=== PATIENT | female | born 1945 | race Caucasian/White ===

== ENCOUNTER 2019-09-10 03:07 | Inpatient (IN) | payer MEDICARE ==
[~2019-09-10] VITALS: Ht 165.1 cm; Wt 41.4 kg
[2019-09-10] MEDS ORDERED: ALBUTEROL SULF 2.5 MG/0.5ML(0.5%) NEB SOLN HHN ONE (03:30)
[2019-09-10] MEDS ORDERED: methylPREDNISolone SOD SUCC 125 MG/2 ML VL IV ONE (03:30)
[2019-09-10] MEDS ORDERED: IPRATROPIUM BROM 0.5 MG/2.5ML INH SOL HHN ONE (03:30)
[2019-09-10 05:11] LABS: Basophils # (auto) 0.2 10 ^3/uL (0-0.2); Basophils % (auto) 1.2 % (0.0-2.0); Eosinophils # (auto) 0 10 ^3/uL (0-0.8); Hematocrit 46.4 % (36.0-46.0); Lymphocytes # (auto) 0.5 10 ^3/uL (0.4-5.4); Lymphocytes % (auto) 3.8 % (10.0-50.0); Mean Corpuscular Hemoglobin 31.7 pg (28.0-32.0); Mean Corpuscular Hgb Conc. 32.4 g/dL (32.0-36.0); Mean Corpuscular Volume 97.9 fL (80.0-100.0); Monocytes # (auto) 0.5 10 ^3/uL (0-1.3); Monocytes % (auto) 3.8 % (0.0-12.0); Neutrophils # (auto) 12.8 10 ^3/uL (1.6-8.6); Neutrophils % (auto) 91.2 % (37.0-80.0); Nucleated Red Blood Cells % 0.2 %; Platelet Count (auto) 158 10^3/uL (140-450); Red Blood Cells 4.74 10^6/uL (4.0-5.20); Red Cell Distribution Width 13.9 % (11.8-14.3)
[2019-09-10 05:27] LABS: Alanine Aminotransferase 33 U/L (13-56); Albumin 3.8 g/dL (3.4-5.0); Anion Gap 6 (5-15); Aspartate Aminotransferase 44 U/L (15-37); BUN/Creatinine Ratio 25.5; Blood Urea Nitrogen 28 mg/dL (7-18); Carbon Dioxide 27 mmol/L (21-32); Chloride 103 mmol/L (98-107); GFR African American 62 mL/min; GFR Non-African American 51 mL/min; Glucose 129 mg/dL (74-106); Magnesium 1.9 mg/dL (1.6-2.6); Potassium 5.2 mmol/L (3.5-5.1); Sodium 136 mmol/L (136-145)
[2019-09-10] MEDS ORDERED: cefTRIAXone 1GM/50ML D5W 50 ML IV ONE (05:30)
[2019-09-10] MEDS ORDERED: AZITHROMYCIN 250 MG TAB PO ONE (05:30)
[2019-09-10 05:34] LABS: Alkaline Phosphatase 93 U/L (45-117); Bilirubin, Total 0.4 mg/dL (0.2-1.0)
[2019-09-10] MEDS ORDERED: MORPHINE SULF INJ 2 MG/ML SYRINGE 1ML IV PRN (06:00)
[2019-09-10] MEDS ORDERED: DOCUSATE SOD 100 MG CAP PO PRN (06:00)
[2019-09-10] MEDS ORDERED: hydrALAZINE HCL 25 MG TAB PO PRN (06:00)
[2019-09-10] MEDS ORDERED: ONDANSETRON HCL 4 MG/2 ML VIAL IV PRN (06:00)
[2019-09-10] MEDS ORDERED: ACETAMINOPHEN 500 MG TAB PO PRN (06:00)
[2019-09-10] MEDS ORDERED: ALBUTEROL SULF HFA 90MCG INH 200DOSE IN SCH (06:00)
[2019-09-10] MEDS ORDERED: HYDROcodone-ACET 5/325MG TAB PO PRN (06:00)
[2019-09-10] MEDS ORDERED: ACETAMINOPHEN 325 MG TAB PO PRN (06:00)
[2019-09-10] MEDS ORDERED: SODIUM CHLORIDE 0.9% 1,000 ML IV SCH (06:00)
--- NOTE | 2019-09-10 08:10 | NUR ---
Respiratory note: PT ASSESSED FOR MEDNEB PRN. PT FOUND ON 2 LPM NC SP02 95%. PT IS IN NO DISTRESS AT THIS TIME. INFORMED PT TO HAVE RT PAGED IF BECOMES SOB.
--- NOTE | 2019-09-10 09:15 | NUR ---
Telemetry admit from [facility] admitted to Telemetry unit after SBAR received. Patient oriented to BE LOW RN primary RN, unit, room, bed, and unit policies regarding patient care and visiting hours. Patient now on continuous telemetry monitoring,cardiac monitor technician #[id number],telemetry reading on arrival to unit is SR. Patient placed on bedside oxygen, weighed by bedscale and encouraged to call if they need something. All questions and concerns addressed, patient verbalized understanding.
[2019-09-10] MEDS ORDERED: CHOLECALCIFEROL (VITD3) 1,000UNIT=25mCg TAB PO SCH (10:00)
[2019-09-10] MEDS ORDERED: ZINC SULFATE 220mg CAP or TAB PO SCH (10:00)
[2019-09-10] MEDS ORDERED: ASCORBIC ACID 1,000 MG TAB PO SCH (10:00)
[2019-09-10] MEDS ORDERED: DOXYCYCLINE 100MG/250ML 250 ML IV SCH (10:00)
[2019-09-10] MEDS ORDERED: methylPREDNISolone SOD SUCC 125 MG/2 ML VL IV SCH (10:00)
[2019-09-10] MEDS: ENOXAPARIN SOD 40 MG/0.4 ML SYRINGE SC SCH (10:31)
[2019-09-10] MEDS ORDERED: LEVE500T32 PO (10:44)
[2019-09-10] MEDS ORDERED: AMLO5TAB15 PO (10:44)
[2019-09-10] MEDS ORDERED: IBUP600T27 PO (10:44)
[2019-09-10] MEDS ORDERED: CLON0.1D7 PO (10:44)
[2019-09-10 10:53] VITALS: BP 108/52
--- NOTE | 2019-09-10 11:10 | NUR ---
IV insertion IV access obtained, via clean sterile technique by inserting 22 gauge catheter at LEFT WRIST after 1 attempt(s). IV secured properly. No trauma to site. Patient tolerated well. IV removal IV DC'd with clean sterile technique, catheter fully intact. Pressure dressing applied to site. Patient tolerated well.
[2019-09-10 12:00] VITALS: BP 94/71
--- NOTE | 2019-09-10 13:40 | NUR ---
PT TRANSFERRED TO ROOM 246A PT TRANSFERRED WITH ALL BELONGING AND ON 4LNC. NO DISTRESS NOTED AT TIME OF DEPARTURE
--- NOTE | 2019-09-10 14:00 | NUR ---
RESUMED CARE OF PATIENT.
[2019-09-10 16:59] VITALS: BP 118/72
[2019-09-10] MEDS: ALBUTEROL SULF 2.5 MG/0.5ML(0.5%) NEB SOLN NEB PRN (18:19)
[2019-09-10] MEDS: IPRATROPIUM BROM 0.5 MG/2.5ML INH SOL NEB PRN (18:20)
--- NOTE | 2019-09-10 19:00 | NUR ---
Opening Shift Note Assumed care of patient, awake and alert. No S/S of distress/SOB or pain. Instructed on POC and to call for assist PRN, will continue to monitor for changes Q1hr and PRN. Bed locked in lowest position. Call light within reach.
[2019-09-10] MEDS ORDERED: SODIUM CHLORIDE 0.9% 1,000 ML IV ONE (20:15)
[2019-09-10] MEDS ORDERED: FUROSEMIDE 20 MG/2 ML VIAL IV ONE (20:15)
[2019-09-10 21:50] LABS: Calcium 8.7 mg/dL (8.5-10.1); Potassium 4.5 mmol/L (3.5-5.1)
[2019-09-10] MEDS: AZITHROMYCIN 250 MG TAB PO SCH (21:50)
[2019-09-10] MEDS: methylPREDNISolone SOD SUCC 40 MG/ML VL IV SCH (21:51)
[2019-09-10 22:00] VITALS: BP 103/48
--- NOTE | 2019-09-11 04:46 | NUR ---
IV removal IV DC'd from left wrist with clean sterile technique, catheter fully intact. Pressure dressing applied to site. Patient tolerated well.
[2019-09-11 05:00] VITALS: BP 123/72
--- NOTE | 2019-09-11 05:00 | NUR ---
IV insertion IV access obtained, via clean sterile technique by inserting 22 gauge catheter on left wrist after 1 attempt. IV secured properly. No trauma to site. Patient tolerated well.
--- NOTE | 2019-09-11 06:00 | NUR ---
pt assessed for prn hhn tx. pt is on 4lnc, spo2 95%,hr 101, rr 20. no s/s of respiratory ditsress. hhn tx not indicated at this time. will continue to monitor.
[2019-09-11 06:21] LABS: Basophils # (auto) 0 10 ^3/uL (0-0.2); Basophils % (auto) 0.1 % (0.0-2.0); Eosinophils # (auto) 0 10 ^3/uL (0-0.8); Hematocrit 40.7 % (36.0-46.0); Hemoglobin 13.8 g/dL (12.2-16.2); Lymphocytes # (auto) 0.6 10 ^3/uL (0.4-5.4); Lymphocytes % (auto) 5.3 % (10.0-50.0); Mean Corpuscular Hemoglobin 32.8 pg (28.0-32.0); Mean Corpuscular Hgb Conc. 33.8 g/dL (32.0-36.0); Mean Corpuscular Volume 96.9 fL (80.0-100.0); Monocytes # (auto) 0.3 10 ^3/uL (0-1.3); Monocytes % (auto) 2.6 % (0.0-12.0); Neutrophils # (auto) 11.2 10 ^3/uL (1.6-8.6); Nucleated Red Blood Cells % 0.1 %; Platelet Count (auto) 160 10^3/uL (140-450); Red Cell Distribution Width 13.5 % (11.8-14.3); White Blood Cell 12.2 10^3/uL (4.4-10.8)
[2019-09-11 06:34] LABS: Albumin 3.3 g/dL (3.4-5.0); Magnesium 1.9 mg/dL (1.6-2.6); Potassium 4.6 mmol/L (3.5-5.1)
[2019-09-11 06:36] LABS: BUN/Creatinine Ratio 37.5
[2019-09-11 06:38] LABS: Bilirubin, Total 0.3 mg/dL (0.2-1.0); Total Protein 7.4 g/dL (6.4-8.2)
--- NOTE | 2019-09-11 07:13 | NUR ---
Endorsed care to day shift RN.
[2019-09-11 08:00] VITALS: BP 124/94
[2019-09-11] MEDS: cefTRIAXone 1GM/50ML D5W 50 ML IV SCH (09:17)
[2019-09-11] MEDS: methylPREDNISolone SOD SUCC 40 MG/ML VL IV SCH ×2 (09:17→21:08)
[2019-09-11] MEDS: AZITHROMYCIN 250 MG TAB PO SCH (09:17)
[2019-09-11] MEDS: ENOXAPARIN SOD 40 MG/0.4 ML SYRINGE SC SCH (09:17)
[2019-09-11 12:00] VITALS: BP 109/69
[2019-09-11 16:57] VITALS: BP 103/93
--- NOTE | 2019-09-11 19:00 | NUR ---
Opening Shift Note Assumed care of patient, awake and alert. No S/S of distress/SOB or pain. Instructed on POC and to call for assist PRN, will continue to monitor for changes Q1hr and PRN.
[2019-09-11] MEDS: IPRATROPIUM BROM 0.5 MG/2.5ML INH SOL NEB PRN (19:52)
[2019-09-11] MEDS: ALBUTEROL SULF 2.5 MG/0.5ML(0.5%) NEB SOLN NEB PRN (19:52)
[2019-09-11] MEDS: levETIRAcetam 500 MG TAB PO SCH (21:08)
[2019-09-11 21:47] VITALS: BP 115/82
--- NOTE | 2019-09-12 00:13 | NUR ---
Rounds Patient in bed asleep with no distress noted. Will continue to monitor Q1H PRN.
[2019-09-12 04:51] VITALS: BP 137/60
[2019-09-12 06:42] LABS: Urine Bacteria NONE SEEN /hpf (None Seen); Urine Blood Negative /uL (Negative); Urine Specific Gravity 1.017 (1.001-1.035); Urine WBC 2 /hpf (0 - 5)
--- NOTE | 2019-09-12 07:30 | NUR ---
Endorsed care to day shift RN. Patient in bed awake with no signs of distress.
[2019-09-12 09:00] VITALS: BP 108/63
[2019-09-12] MEDS: cefTRIAXone 1GM/50ML D5W 50 ML IV SCH (09:27)
[2019-09-12] MEDS: levETIRAcetam 500 MG TAB PO SCH ×2 (09:27→21:57)
[2019-09-12] MEDS: AZITHROMYCIN 250 MG TAB PO SCH (09:27)
[2019-09-12] MEDS: methylPREDNISolone SOD SUCC 40 MG/ML VL IV SCH ×2 (09:28→21:57)
[2019-09-12] MEDS: ENOXAPARIN SOD 40 MG/0.4 ML SYRINGE SC SCH (09:29)
[2019-09-12 13:00] VITALS: BP 128/62
[2019-09-12 13:01] LABS: Basophils # (auto) 0 10 ^3/uL (0-0.2); Basophils % (auto) 0.1 % (0.0-2.0); Eosinophils # (auto) 0 10 ^3/uL (0-0.8); Hemoglobin 13.3 g/dL (12.2-16.2); Lymphocytes # (auto) 0.5 10 ^3/uL (0.4-5.4); Mean Corpuscular Hemoglobin 32.2 pg (28.0-32.0); Mean Corpuscular Hgb Conc. 33.4 g/dL (32.0-36.0); Mean Corpuscular Volume 96.6 fL (80.0-100.0); Monocytes # (auto) 0.3 10 ^3/uL (0-1.3); Monocytes % (auto) 2.7 % (0.0-12.0); Neutrophils % (auto) 92.2 % (37.0-80.0); Platelet Count (auto) 219 10^3/uL (140-450); Red Blood Cells 4.14 10^6/uL (4.0-5.20); Red Cell Distribution Width 13.6 % (11.8-14.3); White Blood Cell 10.9 10^3/uL (4.4-10.8)
--- NOTE | 2019-09-12 13:11 | NUR ---
PT ASSESSED FOR PRN BREATHING TX. PT IN NO DISTRESS. PT ON RA WITH SPO2 98%, HR 71, RR 18 WITH CLEAR BS. NO INDICATION FOR PRN MED NEB.
[2019-09-12 13:16] LABS: BUN/Creatinine Ratio 44.6; Calcium 8.7 mg/dL (8.5-10.1); Potassium 4.5 mmol/L (3.5-5.1)
[2019-09-12 17:00] VITALS: BP 139/79
[2019-09-12] MEDS: IPRATROPIUM BROM 0.5 MG/2.5ML INH SOL NEB PRN (19:16)
[2019-09-12] MEDS: ALBUTEROL SULF 2.5 MG/0.5ML(0.5%) NEB SOLN NEB PRN (19:16)
--- NOTE | 2019-09-12 19:19 | NUR ---
RT NOTE PT WAS SEEN BY FOR PRN HHN TX. PT IS SLIGHTLY SOB FROM USING RESTROOM. PRN HHN TX GIVEN. PT TOLERATES WELL VIA MOUTHPIECE. PT AWARE TO CALL IF TX NEEDED BEFORE MORNING. CONT ORDERED Addendum: 09/12/19 at 1999 by Augustina Anaya RT Amended: Links added.
--- NOTE | 2019-09-12 19:40 | NUR ---
Opening Shift Note Assumed care of patient, awake and alert. No S/S of distress/SOB or pain. Instructed on POC and to call for assist PRN, will continue to monitor for changes Q1hr and PRN. bed in low position call light within reach. seizure precautions in place.
[2019-09-12 22:00] VITALS: BP 132/97
--- NOTE | 2019-09-12 22:30 | NUR ---
Attempted to start 20g iv , as per radiologist patient requires 20g iv for CT scheduled for tomorrow. Unsuccessful iv after 2x patient tolerated well. patient stated " i am tired and i want to go to sleep now" informed patient another nurse will attempt to start an iv in the morning per patient " do not wake me up before 8 in the morning i want to sleep." patient educated on time of CT, and benefits and risks of insertion of new iv. patient verbalized understanding and stated again " do not wake me up before 8 in the morning i want to sleep." patient educated on maintaining npo status for CT scheduled patient verbalized understanding.
[2019-09-13 05:00] VITALS: BP 131/74
--- NOTE | 2019-09-13 07:02 | NUR ---
Respiratory note: PT AWAKE, AND ALERT. NO RESPIRATORY DISTRESS NOTED. SPO2 96% ON 2L NC, HR 85, RR 16, BS CLEAR BILATERALLY. PRN MEDNEB TX NOT INDICATED AT THIS TIME. PT INFORMED TO PUSH CALL BUTTON IF INCREASED WOB, SOB, OR WHEEZING OCCURS.
--- NOTE | 2019-09-13 07:37 | NUR ---
REPORT GIVEN TO DAYSHIFT RN PATIENT INCLUDING THAT PATIENT REFUSED PLACEMENT OF AN IV AT THIS TIME FOR CT ANGIOGRAM. PATIENT DENIES SOB DISTRESS OR PAIN. SEIZURE PRECAUTIONS IN PLACE. CALL LIGHT WITHIN REACH AND BED IN LOW POSITION.
[2019-09-13] MEDS ORDERED: IOHEXOL 350 MG/ML 100ML IJ ONE (08:20)
[2019-09-13 08:40] VITALS: BP 141/78
[2019-09-13] MEDS: cefTRIAXone 1GM/50ML D5W 50 ML IV SCH (09:16)
[2019-09-13] MEDS: levETIRAcetam 500 MG TAB PO SCH (09:17)
[2019-09-13] MEDS: ENOXAPARIN SOD 40 MG/0.4 ML SYRINGE SC SCH (09:17)
[2019-09-13] MEDS: AZITHROMYCIN 250 MG TAB PO SCH (09:17)
[2019-09-13] MEDS: methylPREDNISolone SOD SUCC 40 MG/ML VL IV SCH (09:17)
--- NOTE | 2019-09-13 10:40 | NUR ---
spoke with Dr. Ruelas, she said she ordered GI consult and if Dr. Daily will clear the pt , she can go home today.
--- NOTE | 2019-09-13 11:20 | NUR ---
pt seen by Dr. Daily, he recommend outpatient work up.
--- NOTE | 2019-09-13 11:31 | NUR ---
spoke with Dr. Ruelas, made aware that Dr. Daily recommend outpatient work up, Dr. Ruelas said she will discharge the pt.
[2019-09-13 12:00] VITALS: BP 141/78
[2019-09-13 13:00] VITALS: BP 142/68
[2019-09-13 13:05] VITALS: BP 142/68
--- NOTE | 2019-09-13 13:12 | NUR ---
spoke with Jane social science manager, she said pt can go home, pt was set up with [facility].
--- NOTE | 2019-09-13 13:48 | NUR ---
Assessment Patient is a 74-year old female who is alert and oriented. Prior to admission patient lived home with family and functioned assistance. Patient informed me her caregiver Gabriela ([facility]) helps her with her ADLs. Patient stated she has home O2 for home use. Patient informed me she received SSI with an amount of 780dlls and food stamp with an amount of 160dlls. Advised patient there is a Social Service consult for home health safety evaluation and unfit living situation. Patient stated she feels safe at home and has no problem returning home. Per patient she will return home to her prior living arrangements post discharge and family will transport her home. Information and Choice letter was given to patient. Per patient she does not have a home health preference. Informed patient clinical information will be faxed to [facility]. Informed patient she has a right to participate in all discharge planning. Patient verbalized understanding and agreed to discharge plan home. Per Teresa with [facility]:) patient has been accepted and service to start within 24-48hrs upon d/c day. Informed TOM Munoz. Addendum: 09/13/19 at 1350 by RUPINDER LOMBARDO Amended: Links added.
--- NOTE | 2019-09-13 13:50 | NUR ---
CALLED SON YUE BENJAMIN FOR PT'S RIDE HOME BUT NO ANSWER, LEFT A MESSAGE TO CALL BACK.
--- NOTE | 2019-09-13 17:25 | NUR ---
Discharge instructions given as ordered. Encourage to follow up with DR. OROURKE ON SEPTEMBER 16 AT 3:30PM as instructed. All questions and concerns addressed. Patient verbalized understanding. Medication reconciliation form completed and copy given to patient. IV removed with catheter intact, pressure dressing applied. Telemetry unit returned to ICU. Patient taken to vehicle via wheelchair with all personal belongings, accompanied by staff and family member. No distress noted at time of departure.
[2019-09-14] MEDS ORDERED: predniSONE 20 MG TAB PO SCH (10:00)
== END 2019-09-13 17:25 | disposition home health service (06) | DRG 190 ==
LOC: EDBD 03:07 → ER 03:18 → TELE 03:19 → TELE-EAST 09:32
PROVIDERS: ADMIT Hospitalist; ATTEND Internal Medicine Nephrology
DX: J44.1 Chronic obstructive pulmonary disease with (acute) exacerbation (principal); N17.0 Acute kidney failure with tubular necrosis; R65.10 Systemic inflammatory response syndrome (SIRS) of non-infectious origin without acute organ dysfunction; R06.03 Acute respiratory distress; Z03.818 Encounter for observation for suspected exposure to other biological agents ruled out; R19.7 Diarrhea, unspecified; E87.5 Hyperkalemia; I10 Essential (primary) hypertension; R13.10 Dysphagia, unspecified; K22.8 Other specified diseases of esophagus; G40.909 Epilepsy, unspecified, not intractable, without status epilepticus; Z86.73 Personal history of transient ischemic attack (TIA), and cerebral infarction without residual deficits
CPT/HCPCS: 36415; 36600; 71045; 71275; 76775; 80048; 80053; 81001; 82728; 82805; 83036; 83605; 83735; 83880; 84484; 85025; 85379; 87040; 87070; 87086; 87804; 87880; 94640; 96374; G0378; J0696; J3490; J7060

== ENCOUNTER 2019-09-17 08:29 | Inpatient (IN) | payer MEDICARE ==
[~2019-09-17] VITALS: Ht 157.5 cm; Wt 40.0 kg
[~2019-09-17 08:29] MED LIST: AMLO5TAB15 PO; LEVE500T22 PO
[2019-09-17] MEDS ORDERED: methylPREDNISolone SOD SUCC 125 MG/2 ML VL IV ONE (08:45)
[2019-09-17] MEDS ORDERED: cefTRIAXone 1GM/50ML D5W 50 ML IV ONE (08:45)
[2019-09-17] MEDS ORDERED: AZITHROMYCIN 500MG/ 250ML 250 ML IV ONE (08:45)
[2019-09-17 09:13] LABS: Basophils # (auto) 0 10 ^3/uL (0-0.2); Basophils % (auto) 0.6 % (0.0-2.0); Eosinophils # (auto) 0 10 ^3/uL (0-0.8); Eosinophils % (auto) 0.2 % (0.0-7.0); Hematocrit 42.8 % (36.0-46.0); Hemoglobin 13.8 g/dL (12.2-16.2); Lymphocytes # (auto) 0.9 10 ^3/uL (0.4-5.4); Lymphocytes % (auto) 11.9 % (10.0-50.0); Mean Corpuscular Hemoglobin 31.3 pg (28.0-32.0); Mean Corpuscular Hgb Conc. 32.3 g/dL (32.0-36.0); Mean Corpuscular Volume 96.9 fL (80.0-100.0); Monocytes # (auto) 0.6 10 ^3/uL (0-1.3); Monocytes % (auto) 8.8 % (0.0-12.0); Neutrophils # (auto) 5.7 10 ^3/uL (1.6-8.6); Neutrophils % (auto) 78.5 % (37.0-80.0); Nucleated Red Blood Cells % 0.2 %; Platelet Count (auto) 348 10^3/uL (140-450); Red Blood Cells 4.42 10^6/uL (4.0-5.20); Red Cell Distribution Width 13.6 % (11.8-14.3); White Blood Cell 7.3 10^3/uL (4.4-10.8)
[2019-09-17 09:29] LABS: Alanine Aminotransferase 33 U/L (13-56); Albumin 3.5 g/dL (3.4-5.0); Anion Gap 6 (5-15); Aspartate Aminotransferase 16 U/L (15-37); BUN/Creatinine Ratio 40.5; Blood Urea Nitrogen 34 mg/dL (7-18); Calcium 8.8 mg/dL (8.5-10.1); Carbon Dioxide 31 mmol/L (21-32); Chloride 98 mmol/L (98-107); GFR African American 85 mL/min; GFR Non-African American 70 mL/min; Glucose 118 mg/dL (74-106); Potassium 4.4 mmol/L (3.5-5.1); Sodium 135 mmol/L (136-145)
[2019-09-17 09:32] LABS: INR 1.14 (0.9-1.15); Partial Thromboplastin Time 23.4 sec (23.64-32.05)
[2019-09-17 09:34] LABS: Alkaline Phosphatase 62 U/L (45-117); Bilirubin, Total 0.7 mg/dL (0.2-1.0); Lactic Acid w/Reflex 2.4 mmol/L (0.4-2.0); Total Protein 6.9 g/dL (6.4-8.2)
[2019-09-17] MEDS ORDERED: LORazepam 0.5 MG TAB PO ONE (12:00)
[2019-09-17] MEDS ORDERED: HYDROcodone-ACET 5/325MG TAB PO PRN (12:15)
[2019-09-17] MEDS ORDERED: ACETAMINOPHEN 500 MG TAB PO PRN (12:15)
[2019-09-17] MEDS ORDERED: NITROGLYCERIN 0.4 MG SL TAB SL PRN (12:15)
[2019-09-17] MEDS ORDERED: ONDANSETRON HCL 4 MG/2 ML VIAL IV PRN (12:15)
[2019-09-17] MEDS ORDERED: MORPHINE SULF INJ 2 MG/ML SYRINGE 1ML IV PRN ×2 (12:15)
[2019-09-17] MEDS ORDERED: SODIUM CHLORIDE 0.9% 1,000 ML IV ONE (12:30)
--- NOTE | 2019-09-17 13:05 | NUR ---
RECEIVED REPORT FROM JUAN CARLOS Johnston RN RE PATIENT STATUS
--- NOTE | 2019-09-17 13:21 | NUR ---
MS admit from [facility] admitted to tele/MS after SBAR received.To bed made comfortable, Patient oriented to primary RN, unit, room, bed, and unit policies regarding patient care and visiting hours.call light within reach,patient reminded instructed to call for assistance. All questions and concerns addressed, patient verbalized understanding.
--- NOTE | 2019-09-17 15:00 | NUR ---
TEJINDER RICHARDSON CALLED,PASSWORD CREATED "[id number]" WITH PATIENT AND RN
[2019-09-17] MEDS: PANTOPRAZOLE 40 MG TAB PO SCH (15:22)
[2019-09-17 15:26] VITALS: BP 141/60
--- NOTE | 2019-09-17 16:35 | NUR ---
HERE TO SEE AND EXAMINED PATIENT,RECEIVED ORDERS
[2019-09-17] MEDS ORDERED: AMLO5TAB15 PO (16:40)
[2019-09-17] MEDS ORDERED: LISI-646 PO (16:40)
[2019-09-17] MEDS ORDERED: ATO40T PO (16:40)
[2019-09-17] MEDS ORDERED: DOXY-332 PO (16:40)
[2019-09-17] MEDS ORDERED: FLUT110A INH (16:40)
[2019-09-17] MEDS ORDERED: IBUP600T27 PO (16:40)
[2019-09-17] MEDS ORDERED: PRED1PAK8 PO (16:40)
--- NOTE | 2019-09-17 18:26 | NUR ---
SPECIMEN CUP GIVEN TO PATIENT,INSTRUCTED TO COLLECT SPUTUM FOR STUDY,PATIENT VERBALIZED UNDERSTANDING.
--- NOTE | 2019-09-17 19:12 | NUR ---
STATUS UNCHANGED,NO DISTRESS NO DISCOMFORT,REPORT GIVEN TO INCOMING NOC SHIFT RN
[2019-09-17] MEDS: IPRATROPIUM BROM 0.5 MG/2.5ML INH SOL NEB SCH (19:42)
[2019-09-17] MEDS: ALBUTEROL SULF 2.5 MG/0.5ML(0.5%) NEB SOLN NEB SCH (19:42)
[2019-09-17] MEDS: BUDESONIDE (INHALATION) 0.5 MG/2 ML NEB NEB SCH (19:43)
[2019-09-17 21:14] VITALS: BP 141/60
[2019-09-17] MEDS: ATORVASTATIN 20 MG TAB PO SCH (21:26)
[2019-09-17] MEDS: levETIRAcetam 500 MG TAB PO SCH (21:26)
[2019-09-17] MEDS: methylPREDNISolone SOD SUCC 40 MG/ML VL IV SCH (21:26)
[2019-09-18] VITALS (7 sets, daily range): BP systolic 66–107; BP diastolic 40–69
[2019-09-18] MEDS: BUDESONIDE (INHALATION) 0.5 MG/2 ML NEB NEB SCH ×2 (06:38→18:36)
[2019-09-18] MEDS: IPRATROPIUM BROM 0.5 MG/2.5ML INH SOL NEB SCH ×3 (06:38→18:36)
[2019-09-18] MEDS: ALBUTEROL SULF 2.5 MG/0.5ML(0.5%) NEB SOLN NEB SCH ×3 (06:38→18:36)
[2019-09-18] MEDS: amLODIPine BESYLATE 5 MG TAB PO SCH (09:27)
[2019-09-18] MEDS: levETIRAcetam 500 MG TAB PO SCH ×2 (09:40→22:44)
[2019-09-18] MEDS: methylPREDNISolone SOD SUCC 40 MG/ML VL IV SCH ×2 (09:40→22:44)
[2019-09-18] MEDS: PANTOPRAZOLE 40 MG TAB PO SCH (09:41)
[2019-09-18] MEDS ORDERED: FAMOTIDINE 20 MG TAB PO SCH (10:00)
[2019-09-18] MEDS ORDERED: IOHEXOL 350 MG/ML 100ML IJ ONE (16:25)
--- NOTE | 2019-09-18 18:37 | NUR ---
Respiratory note: PT REFUSED MED NEB TX AT THIS TIME. NO RESPIRATORY DISTRESS NOTED.
--- NOTE | 2019-09-18 19:32 | NUR ---
PATIENT NEGATIVE FOR DVT LOWER EXTREMITIES VIA ULTRASOUND AND NEGATIVE FOR PULMONARY EMBOLISM VIA CT ANGIO WITH CONTRAST. COVID TEST PENDING. INFORM HOSPITAL LIST IF COVID TEST POSITIVE REQUESTED BY DR BURGESS.
--- NOTE | 2019-09-18 21:47 | NUR ---
naveen menesesit to notify of low bp 85/49 hr 60. awaiting call back. Addendum: 09/18/19 at 2149 by Price Shirley RN received new order with [facility], albumin 5% 250 ml x1 iv now. read back and confirmed.
[2019-09-18] MEDS ORDERED: ALBUMIN 5% 250 ML IV ONE (22:00)
[2019-09-18] MEDS: ATORVASTATIN 20 MG TAB PO SCH (22:44)
[2019-09-19] VITALS (7 sets, daily range): BP systolic 91–104; BP diastolic 43–56
[2019-09-19] MEDS: IPRATROPIUM BROM 0.5 MG/2.5ML INH SOL NEB SCH ×3 (06:43→19:10)
[2019-09-19] MEDS: BUDESONIDE (INHALATION) 0.5 MG/2 ML NEB NEB SCH ×2 (06:43→19:10)
[2019-09-19] MEDS: ALBUTEROL SULF 2.5 MG/0.5ML(0.5%) NEB SOLN NEB SCH ×3 (06:43→19:10)
--- NOTE | 2019-09-19 07:00 | NUR ---
patient covid test returned negative results
--- NOTE | 2019-09-19 07:01 | NUR ---
Provided report to shani Frankel. pt has no distress or sob or pain at this time.
[2019-09-19] MEDS: methylPREDNISolone SOD SUCC 40 MG/ML VL IV SCH ×2 (09:57→23:14)
[2019-09-19] MEDS: amLODIPine BESYLATE 5 MG TAB PO SCH (09:57)
[2019-09-19] MEDS: PANTOPRAZOLE 40 MG TAB PO SCH (09:57)
[2019-09-19] MEDS: levETIRAcetam 500 MG TAB PO SCH ×2 (09:57→23:14)
--- NOTE | 2019-09-19 15:42 | NUR ---
assessment re: ss consult living situation Patient is a 74 year old female who is sleeping. Per patients son Marky patient lives home alone in a trailer on family property. Patient has home oxygen for home use. Patient is on [employer] [facility] prior to admission. Per Marky he feels patient should have rehab prior to returning home. I informed Marky that patient would have to agree and would have to qualify. I will follow up in the morning to see if PT eval has been done. Marky verbalized understanding. Addendum: 09/19/19 at 1547 by Unique LOMBARDO Amended: Links added.
[2019-09-19] MEDS ORDERED: TEMAZEPAM 15 MG CAP PO PRN (20:30)
[2019-09-19] MEDS: ATORVASTATIN 20 MG TAB PO SCH (23:14)
[2019-09-20] VITALS (8 sets, daily range): BP systolic 72–128; BP diastolic 45–73
[2019-09-20 04:37] LABS: Urine Bacteria FEW /hpf (None Seen); Urine Blood Negative /uL (Negative); Urine Specific Gravity 1.034 (1.001-1.035); Urine WBC 5 /hpf (0 - 5)
[2019-09-20] MEDS: IPRATROPIUM BROM 0.5 MG/2.5ML INH SOL NEB SCH ×3 (06:53→18:56)
[2019-09-20] MEDS: ALBUTEROL SULF 2.5 MG/0.5ML(0.5%) NEB SOLN NEB SCH ×3 (06:53→18:56)
[2019-09-20] MEDS: BUDESONIDE (INHALATION) 0.5 MG/2 ML NEB NEB SCH ×2 (06:53→18:57)
--- NOTE | 2019-09-20 07:14 | NUR ---
End of Shift Note Endorsed care to dayshift RN. Patient has no s/s of distress or SOB. Responsive to name or touch.
[2019-09-20 07:26] LABS: Basophils # (auto) 0 10 ^3/uL (0-0.2); Basophils % (auto) 0.1 % (0.0-2.0); Eosinophils # (auto) 0 10 ^3/uL (0-0.8); Hematocrit 34.7 % (36.0-46.0); Hemoglobin 11.6 g/dL (12.2-16.2); Lymphocytes # (auto) 0.6 10 ^3/uL (0.4-5.4); Lymphocytes % (auto) 8.5 % (10.0-50.0); Mean Corpuscular Hemoglobin 31.9 pg (28.0-32.0); Mean Corpuscular Hgb Conc. 33.4 g/dL (32.0-36.0); Mean Corpuscular Volume 95.5 fL (80.0-100.0); Monocytes # (auto) 0.2 10 ^3/uL (0-1.3); Monocytes % (auto) 2.7 % (0.0-12.0); Neutrophils % (auto) 88.7 % (37.0-80.0); Nucleated Red Blood Cells % 0.1 %; Platelet Count (auto) 292 10^3/uL (140-450); Red Blood Cells 3.63 10^6/uL (4.0-5.20); Red Cell Distribution Width 13.5 % (11.8-14.3); White Blood Cell 6.8 10^3/uL (4.4-10.8)
[2019-09-20 07:36] LABS: INR 1.18 (0.9-1.15); Partial Thromboplastin Time 25.6 sec (23.64-32.05)
[2019-09-20 07:42] LABS: Albumin 3.1 g/dL (3.4-5.0); Calcium 8.3 mg/dL (8.5-10.1); Potassium 4.4 mmol/L (3.5-5.1)
[2019-09-20 07:47] LABS: Bilirubin, Total 0.7 mg/dL (0.2-1.0); Total Protein 5.6 g/dL (6.4-8.2)
[2019-09-20] MEDS: amLODIPine BESYLATE 5 MG TAB PO SCH (09:12)
[2019-09-20] MEDS: PANTOPRAZOLE 40 MG TAB PO SCH (09:12)
[2019-09-20] MEDS: levETIRAcetam 500 MG TAB PO SCH ×2 (09:19→22:44)
[2019-09-20] MEDS: methylPREDNISolone SOD SUCC 40 MG/ML VL IV SCH ×2 (09:19→22:44)
[2019-09-20] MEDS: SODIUM CHLORIDE 0.9% 1,000 ML IV SCH (11:00)
--- NOTE | 2019-09-20 12:25 | NUR ---
1200 scheduled med neb tx not administered. pt at surgery. medication returned to pyxis.
[2019-09-20] MEDS ORDERED: fentaNYL CITRATE 100 MCG/2 ML VL ONE (12:40)
[2019-09-20] MEDS ORDERED: PROPOFOL 10 MG/ML 20 ML IV ONE (12:44)
--- NOTE | 2019-09-20 12:47 | NUR ---
re-assessment Per consult residential placement. Patient agrees to placement. Patient has no preference on facility. MD order has been sent to [facility]. Waiting on reply back now. Addendum: 09/20/19 at 1252 by Unique Gil Amended: Links added.
[2019-09-20] MEDS ORDERED: fentaNYL CITRATE 100 MCG/2 ML VL IV PRN (13:00)
[2019-09-20] MEDS ORDERED: ONDANSETRON HCL 4 MG/2 ML VIAL IV PRN (13:00)
[2019-09-20] MEDS ORDERED: hydrALAZINE HCL 20 MG/ML VL IV PRN (13:00)
[2019-09-20] MEDS ORDERED: ePHEDrine SULFATE 50 MG/ML AMP IV PRN (13:00)
--- NOTE | 2019-09-20 14:30 | NUR ---
Nutrition Assessment Notes please see attached link for complete assessment [employer] needs IBW 50 [id number] kcal (25-30 kcal/kg IBW) Est protein needs: 50-60 gm(1.0-1.2/kg IBW) Will reassess prn. Addendum: 09/20/19 at [address] Amended: Links added.
--- NOTE | 2019-09-20 15:01 | NUR ---
re-assessment Per Merlyn at [facility] she has accepted patient to facility. Per Merlyn please call once patient is discharged for room number [phone] or Tracey at [phone]. Waiting on discharge now. Addendum: 09/20/19 at 1504 by Unique LOMBARDO Amended: Links added.
--- NOTE | 2019-09-20 16:24 | NUR ---
PT eval orders received. Pt is just back from EGD procedure. Will attempt again later.
--- NOTE | 2019-09-20 16:28 | NUR ---
re-assessment Per Merlyn at [facility] [phone] patient will go to room [address] Cohen is the accepting MD. [facility] will call [phone]. Any questions call Tracey from [facility] [phone]. Addendum: 09/20/19 at 1630 by Unique LOMBARDO Amended: Links added.
--- NOTE | 2019-09-20 19:20 | NUR ---
Opening note Pt A&Ox4. Respirations are even and nonlabored on room air. No c/o pain or discomfort at this time. POC discussed. Bed in low locked position, call light within reach.
[2019-09-20] MEDS: ATORVASTATIN 20 MG TAB PO SCH (22:44)
--- NOTE | 2019-09-20 23:45 | NUR ---
pt presenting with O2 desaturation, 75-80%. RT paged for assistance.
--- NOTE | 2019-09-20 23:46 | NUR ---
Hospitalist Dr. Montano paged regarding pts low blood pressure.
--- NOTE | 2019-09-20 23:52 | NUR ---
New Orders received from Hospitalist Dr. Montano regarding pt low blood pressure 1 Liter fluid bolus of normal saline. If BP doesn't improve by 20 systolically, administer an additional liter fluid bolus of normal saline. Orders read back and verified.
[2019-09-21] VITALS (7 sets, daily range): BP systolic 90–129; BP diastolic 46–68
--- NOTE | 2019-09-21 00:05 | NUR ---
RT NOTE RT WAS CALLED TO PT ROOM FOR DESATURATION . PT IS IN BED ALERT ADN ORIENTED. PT FOUND ON 3L NASAL CANNULA WITH SATS AT 81%. TOM QUICK AT BEDSIDE. PT PLACED ON RT POX FOR CORRELATION AND BS WERE AUSCULTATED. HR 66, RR16-18, BS DIMINISHED. POX WAS 81 ON RT POX ALSO. PT PLACED ON 6L SIMPLE MASK WITH LITTLE IMPROVEMENT IN SATS. PT BP IS NOTED TO BE VERY LOW. PT LOOKS SLIGHTLY PALE. PT OFFERED BREATHING TX AT THIS TIME. PT TOLERATES WELL VIA MASK. PT SATS AT END OF TX WERE 88%. PT LEFT ON 10L SIMPLE MASK WITH RN AND CHARGE NURSE AT BEDSIDE. TOM SHARIF WILL CALL IF FURTHER CARE NEEDED. CONT ORDERED Addendum: 09/21/19 at 0104 by Augustina Anaya RT Amended: Links added.
[2019-09-21] MEDS ORDERED: SODIUM CHLORIDE 0.9% 1,000 ML IV ONE (00:15)
[2019-09-21] MEDS: SODIUM CHLORIDE 0.9% 1,000 ML IV SCH ×2 (00:20→13:40)
[2019-09-21] MEDS: IPRATROPIUM BROM 0.5 MG/2.5ML INH SOL NEB SCH ×3 (06:31→18:54)
[2019-09-21] MEDS: ALBUTEROL SULF 2.5 MG/0.5ML(0.5%) NEB SOLN NEB SCH ×3 (06:31→18:54)
--- NOTE | 2019-09-21 07:38 | NUR ---
closing note pt resting in semi fowlers with HOB elevated at least 30 degrees. respirations are nonlabored on 10L simple mask. pt denies pain at this time. pt encouraged to keep simple mask on. bed in low locked position, call light within reach.
--- NOTE | 2019-09-21 07:39 | NUR ---
Opening Shift Note: Assumed care of patient, awake and alert. No S/S of distress/SOB or pain. Bed in lowest locked position, side rails up x 2, call light within reach. Bed alarm activated for patient safety. Patient instructed on POC and to call for assist PRN, will continue to monitor for changes Q1hr and PRN.
[2019-09-21] MEDS: methylPREDNISolone SOD SUCC 40 MG/ML VL IV SCH ×2 (09:18→21:59)
[2019-09-21] MEDS: PANTOPRAZOLE 40 MG TAB PO SCH (09:18)
[2019-09-21] MEDS: levETIRAcetam 500 MG TAB PO SCH ×2 (09:18→21:59)
[2019-09-21] MEDS: amLODIPine BESYLATE 5 MG TAB PO SCH (09:22)
--- NOTE | 2019-09-21 09:47 | NUR ---
DR. TRAN: DR. Scarlet BURGESS AT BEDSIDE. DISCUSSED POC WITH PATIENT. DR. Scarlet BURGESS CALLED PATIENT SON, DYLAN, AND SPOKE WITH HIM REGARDING DISCHARGE PLANNING.
[2019-09-21] MEDS: BUDESONIDE (INHALATION) 0.5 MG/2 ML NEB NEB SCH ×2 (10:08→18:55)
--- NOTE | 2019-09-21 13:24 | NUR ---
Pt refused PT eval, requested to try again tomorrow.
--- NOTE | 2019-09-21 18:54 | NUR ---
CLOSING NOTE: Patient resting in bed. No S/S of pain, distress or SOB at this time. Care endorsed to NOC RN
--- NOTE | 2019-09-21 19:20 | NUR ---
opening note pt resting in semi fowlers with HOB at 30 degrees. Respirations are even and nonlabored. pt denies pain or discomfort at this time. pt states that she feels "much better" today. will continue to monitor. POC discussed. bed in low locked position, call light within reach.
[2019-09-21] MEDS: ATORVASTATIN 20 MG TAB PO SCH (21:59)
[2019-09-22] MEDS: SODIUM CHLORIDE 0.9% 1,000 ML IV SCH ×2 (03:38→16:20)
[2019-09-22 05:00] VITALS: BP 103/52
[2019-09-22] MEDS: IPRATROPIUM BROM 0.5 MG/2.5ML INH SOL NEB SCH ×3 (06:24→18:54)
[2019-09-22] MEDS: BUDESONIDE (INHALATION) 0.5 MG/2 ML NEB NEB SCH ×2 (06:24→18:54)
[2019-09-22] MEDS: ALBUTEROL SULF 2.5 MG/0.5ML(0.5%) NEB SOLN NEB SCH ×3 (06:24→18:54)
--- NOTE | 2019-09-22 07:15 | NUR ---
closing note pt denies pain or discomfort at this time. respirations even and nonlabored on 3Lnc. bed in low locked position, call light within reach.
[2019-09-22 09:00] VITALS: BP 118/67
[2019-09-22] MEDS: methylPREDNISolone SOD SUCC 40 MG/ML VL IV SCH ×2 (09:29→21:28)
[2019-09-22] MEDS: PANTOPRAZOLE 40 MG TAB PO SCH (09:29)
[2019-09-22] MEDS: levETIRAcetam 500 MG TAB PO SCH ×2 (09:29→21:28)
[2019-09-22] MEDS: amLODIPine BESYLATE 5 MG TAB PO SCH (09:29)
--- NOTE | 2019-09-22 09:53 | NUR ---
Pt refused PT eval today and requested that therapist return tomorrow morning. Will attempt again.
[2019-09-22 14:39] VITALS: BP 86/53
[2019-09-22 16:41] VITALS: BP 90/50
--- NOTE | 2019-09-22 18:53 | NUR ---
CLOSING NOTE: Patient laying in bed. No S/S of distress or pain at this time. Care endorsed.
--- NOTE | 2019-09-22 21:15 | NUR ---
ATTEMPTED TO APPLY OPTIFOAM TO PATIENTS BOTTOM. PATIENT REFUSING STATING SHE WILL DO IT TOMORROW. INFORMED PATIENT THAT SHE IS AT RISK OF DEVELOPING A PRESSURE INJURY DURING NIGHT TIME. PATIENT CONTINUING TO REFUSE.
[2019-09-22] MEDS: ATORVASTATIN 20 MG TAB PO SCH (21:28)
--- NOTE | 2019-09-22 21:32 | NUR ---
REGARDING SOLUMEDROL. PATIENT REFUSING SOLUMEDROL AT THIS TIME. STATES "I HAVE NEVER TAKEN THIS MEDICATION BEFORE." INFORMED PATIENT THAT SHE HAS BEEN REFUSING AND PATIENT STATED "DO NOT LIE TO ME." INFORMED PATIENT OF IMPORTANCE OF MEDICATION AND PATIENT CONTINUING TO REFUSE.
[2019-09-22 22:00] VITALS: BP 117/63
--- NOTE | 2019-09-23 03:09 | NUR ---
CONTINUATION OF CARE: Patient resting in bed. No S/S of pain, distress or SOB. Bed in lowest locked position, side rails up x 2, call light within reach. Bed alarm activated for patient safety. Will continue to educated patient of POC.
[2019-09-23] MEDS: SODIUM CHLORIDE 0.9% 1,000 ML IV SCH (05:40)
[2019-09-23] MEDS: IPRATROPIUM BROM 0.5 MG/2.5ML INH SOL NEB SCH ×2 (06:05→11:35)
[2019-09-23] MEDS: ALBUTEROL SULF 2.5 MG/0.5ML(0.5%) NEB SOLN NEB SCH ×2 (06:05→11:35)
[2019-09-23] MEDS: BUDESONIDE (INHALATION) 0.5 MG/2 ML NEB NEB SCH (06:05)
[2019-09-23 08:48] VITALS: BP 90/51
[2019-09-23] MEDS: amLODIPine BESYLATE 5 MG TAB PO SCH (09:11)
[2019-09-23] MEDS: levETIRAcetam 500 MG TAB PO SCH (09:11)
[2019-09-23] MEDS: methylPREDNISolone SOD SUCC 40 MG/ML VL IV SCH (09:11)
[2019-09-23] MEDS: PANTOPRAZOLE 40 MG TAB PO SCH (09:11)
[2019-09-23] MEDS ORDERED: FLUCONAZOLE 200MG/100ML 100 ML IV SCH (10:00)
[2019-09-23] MEDS ORDERED: AZITHROMYCIN 500MG/ 250ML 250 ML IV SCH (10:00)
[2019-09-23 10:51] VITALS: BP 90/51
--- NOTE | 2019-09-23 12:00 | NUR ---
re-assessment Patient is now discharged. Tawanda Webb at [facility] Claire will transport patient to [facility] to room 211 bed 2 at 3pm today post discharge. Patient verbalized understanding and agreed to discharge plan to [facility]. Sridevi SANTOS has been notified. Addendum: 09/23/19 at 1201 by Unique Gil SS Amended: Links added.
[2019-09-23 13:19] VITALS: BP 90/51
--- NOTE | 2019-09-23 14:15 | NUR ---
IV removal: IV DC'd with clean sterile technique, catheter fully intact. Pressure dressing applied to site. Patient tolerated well.
--- NOTE | 2019-09-23 14:30 | NUR ---
Called report to Jeannette at [facility]
--- NOTE | 2019-09-23 15:39 | NUR ---
Nutrition Followup Notes Pt wt is 40.0 kg Pt was sleeping when rounded this morning. Pt with a 2gm Sodium diet, appetite is fair aeb ave 69% PO intake per RN doc. Pt with no noted distress per RN doc. Will continue to closely monitor pertinent labs, PO intake and skin status prn. Will followup in 3-5 days [employer] needs IBW 50 [id number] kcal (25-30 kcal/kg IBW) Est protein needs: 50-60 gm(1.0-1.2/kg IBW) Will reassess prn. LABS: NA 132 L, CL 97 L, GLUC 117 H, ALB 3.1 L, CA 8.3 L GI: Last BM noted on 09/21 per RN doc. BS: 18 mod risk. Please refer to wound assessment report for full details. PES: Problem Increased nutrient needs r.t chronic medical condition aeb pt`s underwt aeb BMI of 15.6 kgm2 Problem Altered nutrition related labs r/t current chronic medical condition aeb elev BUN mild hypoalb Comments 1) consider ensure enlive 1 carton bid 2) refer to [employer] dietitian on DC 3) continue current plan of care
--- NOTE | 2019-09-23 15:52 | NUR ---
Discharge instructions given as ordered. All questions and concerns addressed. Patient verbalized understanding. IV removed with catheter intact, pressure dressing applied. Medication reconciliation form completed and copy given to patient. Home medications held in Pharmacy returned to patient. Report given to Beronica at [facility]. Patient transported by [facility] with all personal belongings. No distress noted at time of departure.
== END 2019-09-23 15:52 | DRG 189 ==
LOC: EDBD 08:29 → ER 08:29 → OVERFLOW 08:30 → WEST WING 13:21
PROVIDERS: ADMIT Nurse Practitioner Acute Care; ATTEND Family Medicine
PROC: 0D758ZZ Dilation of Esophagus, Via Natural or Artificial Opening Endoscopic (ICD-10-PCS; principal; 2019-09-20 12:36)
DX: J96.20 Acute and chronic respiratory failure, unspecified whether with hypoxia or hypercapnia (principal); J44.1 Chronic obstructive pulmonary disease with (acute) exacerbation; R64 Cachexia; J98.11 Atelectasis; Z68.1 Body mass index [BMI] 19.9 or less, adult; K22.2 Esophageal obstruction; E78.5 Hyperlipidemia, unspecified; G40.909 Epilepsy, unspecified, not intractable, without status epilepticus; I10 Essential (primary) hypertension; R13.10 Dysphagia, unspecified; Z86.73 Personal history of transient ischemic attack (TIA), and cerebral infarction without residual deficits; Z79.899 Other long term (current) drug therapy; Z82.49 Family history of ischemic heart disease and other diseases of the circulatory system; Z87.891 Personal history of nicotine dependence; Z03.818 Encounter for observation for suspected exposure to other biological agents ruled out
CPT/HCPCS: 36415; 43248; 71045; 71250; 71275; 80053; 81001; 83605; 83880; 84484; 85025; 85379; 85610; 85730; 86850; 86900; 86901; 87040; 87070; 87077; 87205; 93005; 93306; 93970; 94640; 97163; 99291; G0378; J0696; J1450; J2704

== ENCOUNTER 2020-02-14 17:03 | Inpatient (IN) | payer MEDICARE ==
[~2020-02-14] VITALS: Ht 157.5 cm; Wt 42.5 kg
[~2020-02-14 17:03] MED LIST changes: +ATO40T PO; +DOXY-332 PO; +FLUT110A INH; +IBUP600T27 PO; -LEVE500T22 PO; +LEVE500T32 PO; +LISI-646 PO; +PRED1PAK8 PO
[2020-02-14 19:37] LABS: Basophils # (auto) 0 10 ^3/uL (0-0.2); Basophils % (auto) 0.9 % (0.0-2.0); Eosinophils # (auto) 0.1 10 ^3/uL (0-0.8); Eosinophils % (auto) 1.4 % (0.0-7.0); Hematocrit 39.8 % (36.0-46.0); Hemoglobin 12.9 g/dL (12.2-16.2); Lymphocytes # (auto) 1.2 10 ^3/uL (0.4-5.4); Lymphocytes % (auto) 22.6 % (10.0-50.0); Mean Corpuscular Hemoglobin 32.1 pg (28.0-32.0); Mean Corpuscular Hgb Conc. 32.5 g/dL (32.0-36.0); Mean Corpuscular Volume 98.7 fL (80.0-100.0); Monocytes # (auto) 0.5 10 ^3/uL (0-1.3); Neutrophils # (auto) 3.4 10 ^3/uL (1.6-8.6); Neutrophils % (auto) 65.1 % (37.0-80.0); Nucleated Red Blood Cells % 0.1 %; Platelet Count (auto) 230 10^3/uL (140-450); Red Blood Cells 4.03 10^6/uL (4.0-5.20); Red Cell Distribution Width 14.6 % (11.8-14.3); White Blood Cell 5.2 10^3/uL (4.4-10.8)
[2020-02-14 19:56] LABS: Albumin 4.1 g/dL (3.4-5.0); Anion Gap 6 (5-15); Blood Urea Nitrogen 12 mg/dL (7-18); Calcium 9.4 mg/dL (8.5-10.1); Carbon Dioxide 28 mmol/L (21-32); Chloride 106 mmol/L (98-107); Glucose 90 mg/dL (74-106); Magnesium 1.8 mg/dL (1.6-2.6); Potassium 4.6 mmol/L (3.5-5.1); Sodium 140 mmol/L (136-145)
[2020-02-14 19:58] LABS: Alanine Aminotransferase 26 U/L (13-56); Aspartate Aminotransferase 25 U/L (15-37); BUN/Creatinine Ratio 12.8; GFR African American 74 mL/min; GFR Non-African American 62 mL/min
[2020-02-14 20:04] LABS: Alkaline Phosphatase 125 U/L (45-117); Bilirubin, Total 0.3 mg/dL (0.2-1.0); Total Protein 7.1 g/dL (6.4-8.2)
[2020-02-14] MEDS ORDERED: MORPHINE SULFATE 4 MG/ML SYR/VIAL IV PRN (22:00)
[2020-02-14] MEDS ORDERED: DOCUSATE SOD 100 MG CAP PO PRN (22:00)
[2020-02-14] MEDS ORDERED: NITROGLYCERIN 0.4 MG SL TAB SL PRN (22:00)
[2020-02-14] MEDS: FLUTICASONE PROPIONATE 110 MCG IN SCH (22:00)
[2020-02-14] MEDS ORDERED: ONDANSETRON HCL 4 MG/2 ML VIAL IV PRN (22:00)
[2020-02-14] MEDS ORDERED: ACETAMINOPHEN 325 MG TAB PO PRN (22:00)
[2020-02-14] MEDS ORDERED: HYDROcodone-ACET 5/325MG TAB PO PRN (22:00)
[2020-02-14] MEDS ORDERED: MORPHINE SULF INJ 2 MG/ML SYRINGE 1ML IV PRN (22:00)
[2020-02-14] MEDS: ASCORBIC ACID 500 MG TAB PO SCH (22:20)
[2020-02-14] MEDS: ATORVASTATIN 20 MG TAB PO SCH (22:20)
[2020-02-14] MEDS: FAMOTIDINE 20 MG TAB PO SCH (22:20)
[2020-02-14] MEDS: levETIRAcetam 500 MG TAB PO SCH (22:20)
[2020-02-14 22:37] LABS: Basophils # (auto) 0 10 ^3/uL (0-0.2); Basophils % (auto) 0.7 % (0.0-2.0); Eosinophils # (auto) 0.1 10 ^3/uL (0-0.8); Eosinophils % (auto) 1.3 % (0.0-7.0); Hematocrit 36.3 % (36.0-46.0); Hemoglobin 12.1 g/dL (12.2-16.2); Lymphocytes # (auto) 1.2 10 ^3/uL (0.4-5.4); Lymphocytes % (auto) 20.9 % (10.0-50.0); Mean Corpuscular Hemoglobin 32.6 pg (28.0-32.0); Mean Corpuscular Hgb Conc. 33.3 g/dL (32.0-36.0); Mean Corpuscular Volume 97.9 fL (80.0-100.0); Monocytes # (auto) 0.6 10 ^3/uL (0-1.3); Monocytes % (auto) 10.3 % (0.0-12.0); Neutrophils # (auto) 3.8 10 ^3/uL (1.6-8.6); Neutrophils % (auto) 66.8 % (37.0-80.0); Platelet Count (auto) 219 10^3/uL (140-450); Red Blood Cells 3.71 10^6/uL (4.0-5.20); Red Cell Distribution Width 14.5 % (11.8-14.3); White Blood Cell 5.7 10^3/uL (4.4-10.8)
[2020-02-14 22:47] LABS: Urine Bacteria FEW /hpf (None Seen); Urine Blood Negative /uL (Negative); Urine Hyaline Cast FEW /lpf (0 - 2); Urine Specific Gravity 1.014 (1.001-1.035); Urine WBC 3 /hpf (0 - 5)
[2020-02-14 22:57] LABS: Albumin 3.9 g/dL (3.4-5.0); BUN/Creatinine Ratio 15.7; Calcium 9.1 mg/dL (8.5-10.1); Potassium 4.6 mmol/L (3.5-5.1)
[2020-02-14 23:00] LABS: Bilirubin, Total 0.4 mg/dL (0.2-1.0); Total Protein 6.7 g/dL (6.4-8.2)
--- NOTE | 2020-02-14 23:19 | NUR ---
Telemetry admit from [facility] admitted to Telemetry unit. Patient oriented to PATT RODRÍGUEZ RN primary RN, unit, room, bed, and unit policies regarding patient care and visiting hours. Patient now on continuous telemetry monitoring, tele box #52 and telemetry reading on arrival to unit is 97. Patient placed on bedside oxygen 2L via nasal cannula, weighed by bedscale and encouraged to call if they need something. All questions and concerns addressed, patient verbalized understanding. Will continue to monitor.
[2020-02-14 23:25] VITALS: BP 147/95
[2020-02-15 05:00] VITALS: BP 122/63
[2020-02-15 09:00] VITALS: BP 140/80
[2020-02-15] MEDS ORDERED: PNEUMOCOCCAL VACC POLYS 25 MCG/0.5 ML VIAL IM ONE (10:00)
[2020-02-15] MEDS: FLUTICASONE PROPIONATE 110 MCG IN SCH ×2 (10:00→21:20)
[2020-02-15] MEDS ORDERED: INFLUENZA QUAD 2020-2021 0.5 ML SYRG IM ONE (10:00)
[2020-02-15] MEDS: MULTIPLE VITAMIN TAB PO SCH (10:55)
[2020-02-15] MEDS: ASCORBIC ACID 500 MG TAB PO SCH ×2 (10:56→21:14)
[2020-02-15] MEDS: levETIRAcetam 500 MG TAB PO SCH ×2 (10:57→21:14)
[2020-02-15] MEDS: FAMOTIDINE 20 MG TAB PO SCH (10:58)
[2020-02-15] MEDS: LISINOPRIL 20 MG TAB PO SCH (10:58)
[2020-02-15] MEDS: ZINC SULFATE 220mg CAP or TAB PO SCH (10:59)
[2020-02-15] MEDS: amLODIPine BESYLATE 5 MG TAB PO SCH (10:59)
--- NOTE | 2020-02-15 11:00 | NUR ---
WOUND CARE NOTE: Wound care in to see patient per wound care request regarding skin issue that are noted present on admission. Bedside nurse took photograph of patient's skin issue upon admission for reference. Patient is 74 years old female admitted for Headache. Patient is sitting at bed in Rm. 277B. TOM Espino at bedside. Patient is awake, alert and oriented. She's in no stated pain at this time. She's self turning and repositioning, able to stand up with stand by assist. Her Panfilo score is 20. Patient's came in with scabbed wound/skin tear to L forearm, bedside nurse applied protective Opti foam gentle dressing.Her Rt posterior head/scalp has 2x2cm intact growth/cyst. Patient reported that its a cyst that's been there for about 20 years and her doctor is not recommending anything to do about it. Advised patient and TOM Espino to show to MD when he do rounds. Patient's sacral, buttocks has intact skin with blanchable mild redness. Patient is receiving BID/PRN cleaning and application of Barrier cream to sacral/buttocks as preventative. No pressure injury noted. Patient tolerated well. Left patient seated at side of bed, TOM Espino at bedside. RECOMMENDATION: Nursing to continue with BID/PRN cleaning and application of Barrier cream to sacral, buttocks as preventative, redistribute pressure points with pillows, frequent silvestre care/check, keep clean and dry,continue monitoring by wound care while patient is hospitalized due to patient is very thin and petite. Addendum: 02/15/20 at 1536 by Elba Méndez RN Amended: Links added.
[2020-02-15 13:00] VITALS: BP 102/48
[2020-02-15 13:50] LABS: Basophils # (auto) 0.1 10 ^3/uL (0-0.2); Basophils % (auto) 1.3 % (0.0-2.0); Eosinophils # (auto) 0 10 ^3/uL (0-0.8); Eosinophils % (auto) 0.6 % (0.0-7.0); Hematocrit 38.6 % (36.0-46.0); Hemoglobin 12.9 g/dL (12.2-16.2); Lymphocytes # (auto) 1.2 10 ^3/uL (0.4-5.4); Lymphocytes % (auto) 19.2 % (10.0-50.0); Mean Corpuscular Hemoglobin 32.6 pg (28.0-32.0); Mean Corpuscular Hgb Conc. 33.3 g/dL (32.0-36.0); Mean Corpuscular Volume 97.7 fL (80.0-100.0); Monocytes # (auto) 0.5 10 ^3/uL (0-1.3); Monocytes % (auto) 8.4 % (0.0-12.0); Neutrophils # (auto) 4.5 10 ^3/uL (1.6-8.6); Neutrophils % (auto) 70.5 % (37.0-80.0); Nucleated Red Blood Cells % 0.1 %; Platelet Count (auto) 242 10^3/uL (140-450); Red Blood Cells 3.95 10^6/uL (4.0-5.20); Red Cell Distribution Width 14.5 % (11.8-14.3); White Blood Cell 6.4 10^3/uL (4.4-10.8)
[2020-02-15 14:01] LABS: Calcium 9.1 mg/dL (8.5-10.1); Potassium 4.5 mmol/L (3.5-5.1)
[2020-02-15 14:04] LABS: BUN/Creatinine Ratio 15.6; Bilirubin, Total 0.4 mg/dL (0.2-1.0); Total Protein 6.9 g/dL (6.4-8.2)
--- NOTE | 2020-02-15 16:20 | NUR ---
Patient more disoriented at this time. Patient has a history of dementia, per patient this morning. She is A & O x 3 at this time, re-oriented patient. She states "this place is nice, is this your house? When did you fix it up?", re-oriented patient to hospital and why she is here. Patient is ambulatory, but unsafely walking around with oxygen tubing that can cause a fall. Re-educated patient regarding oxygen tubing. Asked charge Nurse Jyoti for a sitter at this time. Patient is unsafe to keep alone, bed alarm keeps going off. Placed patient in bed with bed alarm on.
--- NOTE | 2020-02-15 17:00 | NUR ---
Re-oriented patient and put back in bed for safety. Seizure precautions are in place due to patient history. Educated patient on fall precautions, bed alarm on, educated patient to call for assistance to bedside commode. Patient agreed.
[2020-02-15 17:30] VITALS: BP 102/82
--- NOTE | 2020-02-15 18:40 | NUR ---
Sitter at bedside. Patient up out of bed, walks out of room, pulls off oxygen, when asked where she is going, she asks this nurse "what catholic is this? where you tell me to do this or do that?" This nurse re-orients patient, informed her that there is an attendant at bedside for her safety. Will continue to monitor Q1h and PRN.
--- NOTE | 2020-02-15 19:44 | NUR ---
Opening Shift Note Received report and assumed care of patient. Patient is confused at this time, refusing physical assessment. Patient is becoming agitated and is verbally abusive towards staff and roommate . Sitter at bedside. Instructed patient on plan of care and to call for assistance as needed. Will page hospitalist and will continue to monitor.
--- NOTE | 2020-02-15 20:47 | NUR ---
Paged Hospitalist Paged hospitalist regarding patient being agitated. Made hospitalist aware of patient's weight and patient stating that she has had suicidal thoughts but no intentions or plan. Also made hospitalist aware that patient has not been seen by Neurologist yet. Received new order for Ativan 0.5mg IV q6hr PRN and to wait until Neurologist sees patient.
[2020-02-15] MEDS: LORazepam 2MG/ML-1ML VIAL IV PRN (21:06)
--- NOTE | 2020-02-15 21:06 | NUR ---
Patient Agitated Patient is confused and agitated. Patient states to this nurse "Why are you doing this? Are you doing this for the drugs or the money? The police know and are on the way to arrest you." Attempted to administer patient's medications per MD orders and per patient's request for Keppra. Patient threw medications at this nurse. Patient continues to be verbally abusive and is physically violent towards staff. Security called. PRN Ativan given. Patient is still confused but is allowing this nurse to administer medications and take vital signs. Sitter at beside. Will continue to monitor.
[2020-02-15] MEDS: ATORVASTATIN 20 MG TAB PO SCH (21:14)
[2020-02-15 22:15] VITALS: BP 129/70
--- NOTE | 2020-02-16 00:12 | NUR ---
Patient Rounds Patient back in bed after walking to restroom. Will continue to monitor.
[2020-02-16] MEDS: LORazepam 2MG/ML-1ML VIAL IV PRN (06:17)
--- NOTE | 2020-02-16 06:19 | NUR ---
Patient Confused and Agitated Patient is confused and agitated. Patient wandering into hallway. Patient refuses to wear oxygen and go back to room. Patient continues to be verbally abusive and is physically violent towards staff. Security called. PRN Ativan given. Patient is sitting at bedside, requesting coffee. Sitter at beside. Will continue to monitor.
[2020-02-16 07:05] VITALS: BP 98/63
--- NOTE | 2020-02-16 08:00 | NUR ---
Opening Note- Patient confused at this time Patient is A & O x1, she is refusing to put oxygen on, refusing to answer questions. Patient states "they were stealing all the pills last night, they put them in piles, that person and your club." This RN re-oriented patient, informed her that she is in the hospital. She is showing no s/s of distress at this time. Will continue to monitor Q1h and PRN. Sitter is at bedside. Per NOC shift RN, they had to remove 277A patient due to patient disturbing her. Spoke to family this morning, NOC shift RN had left message for Grandwilberto Davey. Spoke to him and his Luz this morning, they informed me that she takes xanax at home it helps keep her anxiety and confusion balanced, hospice used to give her this med. They also informed me that the confusion and combativeness happens at home, she has not been formally diagnosed with dementia according to the family. They say that it is worse at night and that the xanax helps with this during the day.
[2020-02-16 09:00] VITALS: BP 90/61
[2020-02-16] MEDS: LISINOPRIL 20 MG TAB PO SCH (10:00)
[2020-02-16] MEDS: ZINC SULFATE 220mg CAP or TAB PO SCH ×2 (10:00→10:09)
[2020-02-16] MEDS: FAMOTIDINE 20 MG TAB PO SCH ×2 (10:00→10:09)
[2020-02-16] MEDS: MULTIPLE VITAMIN TAB PO SCH ×2 (10:00→10:09)
[2020-02-16] MEDS: amLODIPine BESYLATE 5 MG TAB PO SCH (10:00)
[2020-02-16] MEDS: FLUTICASONE PROPIONATE 110 MCG IN SCH ×2 (10:00→21:34)
[2020-02-16] MEDS: levETIRAcetam 500 MG TAB PO SCH ×2 (10:09→21:33)
[2020-02-16] MEDS: ASCORBIC ACID 500 MG TAB PO SCH ×2 (10:09→21:34)
--- NOTE | 2020-02-16 10:15 | NUR ---
NON-Administration of BP medications Patient blood pressure decreased 90/63, HR 112, patient asymptomatic at this time.
--- NOTE | 2020-02-16 14:31 | NUR ---
Spoke to Dr. Bell about patient anxiety. Orders received, read back and verified. Will medicate per orders.
[2020-02-16] MEDS: ALPRAZolam 0.5 MG TAB PO PRN (14:46)
[2020-02-16] MEDS ORDERED: CEFTRIAXONE SODIUM 2 GM in D5W 5% 50 ML IV ONE (16:00)
--- NOTE | 2020-02-16 16:00 | NUR ---
Patient calm at this time. Patient cooperative and answering questions appropriately. Patient is comfortable at this time. She is A & O x3 at this time. Will continue to monitor Q1h and PRN.
[2020-02-16 17:21] VITALS: BP 91/71
--- NOTE | 2020-02-16 19:31 | NUR ---
Opening Shift Note Received report and assumed care of patient. Patient is alert and oriented x3. Able to reorient patient. Patient is calm at this time. No signs or symptoms of distress noted. Instructed patient on plan of care and to call for assistance as needed. Sitter at bedside. Will continue to monitor.
[2020-02-16] MEDS ORDERED: ALPR0.5T PO (20:08)
[2020-02-16] MEDS: ATORVASTATIN 20 MG TAB PO SCH (21:34)
[2020-02-16] MEDS ORDERED: LORazepam 2MG/ML-1ML VIAL IV PRN ×2 (21:45)
[2020-02-16 21:57] VITALS: BP 121/72
[2020-02-17 05:00] VITALS: BP 134/81
[2020-02-17] MEDS: ALPRAZolam 0.5 MG TAB PO PRN (05:16)
[2020-02-17 06:57] LABS: Basophils # (auto) 0 10 ^3/uL (0-0.2); Basophils % (auto) 0.7 % (0.0-2.0); Eosinophils # (auto) 0.1 10 ^3/uL (0-0.8); Eosinophils % (auto) 1.2 % (0.0-7.0); Hemoglobin 11.2 g/dL (12.2-16.2); Lymphocytes # (auto) 0.9 10 ^3/uL (0.4-5.4); Lymphocytes % (auto) 19.3 % (10.0-50.0); Mean Corpuscular Hemoglobin 32.7 pg (28.0-32.0); Mean Corpuscular Hgb Conc. 33.8 g/dL (32.0-36.0); Mean Corpuscular Volume 96.7 fL (80.0-100.0); Monocytes # (auto) 0.5 10 ^3/uL (0-1.3); Monocytes % (auto) 11.4 % (0.0-12.0); Neutrophils % (auto) 67.4 % (37.0-80.0); Platelet Count (auto) 207 10^3/uL (140-450); Red Blood Cells 3.42 10^6/uL (4.0-5.20); White Blood Cell 4.5 10^3/uL (4.4-10.8)
[2020-02-17 07:19] LABS: Potassium 4.4 mmol/L (3.5-5.1)
[2020-02-17 07:21] LABS: BUN/Creatinine Ratio 22.9
--- NOTE | 2020-02-17 07:35 | NUR ---
Opening Shift Note Assumed care of patient, awake and alert x3. No S/S of distress/SOB, or pain. Instructed on POC and to call for assist PRN. Bed locked in lowest position, side rails up x2, call light within reach, sitter at bedside with safety precautions in place. Will continue to monitor for changes Q1hr and PRN.
[2020-02-17] MEDS ORDERED: cefTRIAXone 1GM/50ML D5W 50 ML IV SCH (09:00)
[2020-02-17 09:09] VITALS: BP 103/60
[2020-02-17] MEDS: ZINC SULFATE 220mg CAP or TAB PO SCH (09:35)
[2020-02-17] MEDS: amLODIPine BESYLATE 5 MG TAB PO SCH (09:35)
[2020-02-17] MEDS: FAMOTIDINE 20 MG TAB PO SCH (09:35)
[2020-02-17] MEDS: LISINOPRIL 20 MG TAB PO SCH (09:36)
[2020-02-17] MEDS: levETIRAcetam 500 MG TAB PO SCH (09:36)
[2020-02-17] MEDS: FLUTICASONE PROPIONATE 110 MCG IN SCH (09:36)
[2020-02-17] MEDS: MULTIPLE VITAMIN TAB PO SCH (09:36)
[2020-02-17] MEDS: ASCORBIC ACID 500 MG TAB PO SCH (10:00)
[2020-02-17 10:41] LABS: Prolactin 5.31 ng/mL (2.8-29.2)
[2020-02-17] MEDS: LORazepam 2MG/ML-1ML VIAL IV PRN (10:58)
[2020-02-17 12:03] LABS: Folate (Folic Acid) 11.82 ng/mL (5.38-24)
[2020-02-17 13:00] VITALS: BP 98/54
[2020-02-17] MEDS ORDERED: CYANOCOBALAMIN (B-12) 1000 MCG/1 ML VIAL SUBCUT ONE (13:30)
--- NOTE | 2020-02-17 14:25 | NUR ---
Pt is an alert and oriented female that is pleasant and communicative. Pt states she resides with her grandson and granddaughter who both provide her with care. Pt states she was on hospice but doesn't remember the name. She requested that I contact her family. Contacted grandson who confirmed pt was on with [facility]. Per grandson he wants pt to return home and resume hospice care. Contacted [facility] ( [phone]) and faxed clinical information. Pt accepted to resume service by Claudia at [facility] and transportation set up through [employer] via [employer] for [id number]. No further concerns or needs at this time. Addendum: 02/17/20 at 1428 by CHARLEY GUEVARA Amended: Links added.
[2020-02-17] MEDS ORDERED: PNEUMOCOCCAL VACC POLYS 25 MCG/0.5 ML VIAL IM ONE (14:30)
[2020-02-17] MEDS ORDERED: INFLUENZA QUAD 2020-2021 0.5 ML SYRG IM ONE (14:30)
[2020-02-17 17:12] VITALS: BP 98/58
--- NOTE | 2020-02-17 17:30 | NUR ---
DISCHARGE HOME Discharge instructions given as ordered. Encourage to follow up with hospice MD as needed. All questions and concerns addressed. Patient verbalized understanding. Medication reconciliation form completed and copy given to patient. Needed vaccines given, patient tolerated well. IV removed with catheter intact, pressure dressing applied. Telemetry unit returned to ICU. Patient taken to vehicle via gurney by [employer] [facility] with all personal belongings, accompanied by transport personnel. No distress noted at time of departure.
== END 2020-02-17 17:30 | disposition hospice, home (50) | DRG 71 ==
LOC: EDBD 17:03 → ER 17:03 → TELE 17:04 → TELE-WESTW 23:28 → TELE 02-17 13:29 → TELE-WESTW 02-17 13:31
PROVIDERS: ADMIT Nurse Practitioner Family; ATTEND Nurse Practitioner Family
DX: G93.41 Metabolic encephalopathy (principal); J96.10 Chronic respiratory failure, unspecified whether with hypoxia or hypercapnia; F03.90 Unspecified dementia, unspecified severity, without behavioral disturbance, psychotic disturbance, mood disturbance, and anxiety; J44.9 Chronic obstructive pulmonary disease, unspecified; F17.200 Nicotine dependence, unspecified, uncomplicated; I10 Essential (primary) hypertension; I70.0 Atherosclerosis of aorta; G40.909 Epilepsy, unspecified, not intractable, without status epilepticus; Z79.899 Other long term (current) drug therapy; Z80.8 Family history of malignant neoplasm of other organs or systems; Z82.49 Family history of ischemic heart disease and other diseases of the circulatory system; Z86.73 Personal history of transient ischemic attack (TIA), and cerebral infarction without residual deficits; Z79.891 Long term (current) use of opiate analgesic; Z79.01 Long term (current) use of anticoagulants; Z80.0 Family history of malignant neoplasm of digestive organs
CPT/HCPCS: 36415; 70450; 71045; 80048; 80053; 81001; 82607; 82746; 83735; 84146; 84443; 84484; 85025; 87070; 87086; 87205; 93005; G0378; J0696; J2405; J7060

== ENCOUNTER 2020-05-16 21:13 | Emergency (ER) | payer MEDICARE, OTHER ==
[~2020-05-16] VITALS: Ht 157.5 cm; Wt 45.4 kg
[~2020-05-16 21:13] MED LIST changes: +ALPR0.5T PO; +AMLO-489 PO; -AMLO5TAB15 PO; -LISI-646 PO; +LISI20TA28 PO
[2020-05-16] MEDS ORDERED: NEOMYCIN-BACITRACIN-POLYM UNITDOSE PKG TOP OINT TOP ONE (22:45)
[2020-05-16] MEDS ORDERED: LIDOCAINE 1% HCL (LOCAL ANESTH.) INJ 20ML MDV ONE (22:51)
[2020-05-16] MEDS ORDERED: LIDOCAINE 1% HCL (LOCAL ANESTH.) INJ 20ML MDV ID ONE (23:00)
[2020-05-16] MEDS ORDERED: cefTRIAXone SOD 1,000 MG VL IM ONE (23:45)
[2020-05-19 14:31] VITALS: BP 93/39
== END 2020-05-19 15:38 | disposition home or self-care (01) ==
LOC: EDBD 21:13 → ER 21:13
DX: S51.811A Laceration without foreign body of right forearm, initial encounter (principal); J44.9 Chronic obstructive pulmonary disease, unspecified; I10 Essential (primary) hypertension; Z86.73 Personal history of transient ischemic attack (TIA), and cerebral infarction without residual deficits; Z20.822 Contact with and (suspected) exposure to COVID-19; X58.XXXA Exposure to other specified factors, initial encounter; Y93.89 Activity, other specified; Y92.89 Other specified places as the place of occurrence of the external cause; Y99.8 Other external cause status
CPT/HCPCS: 12004; 36415; 71045; 87426; 96372; 99285; C9803; J2001; U0003; J0696